=== PATIENT | male | born 1975 | race Caucasian/White ===

== ENCOUNTER 2020-06-03 09:22 | Observation (INO) | payer BC ==
[2020-06-03] MEDS ORDERED: NA CHLORIDE 0.9% 1,000 ML ONE (09:53)
[2020-06-03] MEDS ORDERED: NITROGLYCERIN 0.4 MG/TAB SL ONE (09:53)
[2020-06-03] MEDS ORDERED: ASPIRIN 81 MG CHEWABLE TABLET ONE (09:53)
[2020-06-03 10:11] LABS: Absolute Lymphocytes (CBC) 1.7 K/uL (0.7-4.9); Basophils % 1.3 % (0-1.3); Hematocrit 40.3 % (39.6-49.0); Lymphocytes % 28.7 % (15.3-44.8); Protime INR 1.15; RBC Red Blood Cell Count 4.48 M/uL (4.33-5.43)
[2020-06-03 10:28] LABS: ALT/SGPT 16 U/L (12-78); AST/SGOT 10 U/L (15-37); Alkaline Phosphatase 70 U/L (45-117); BUN Blood Urea Nitrogen 12 mg/dL (7-18); Bicarbonate 27 mmol/L (21-32); Bilirubin Direct 0.1 mg/dL (0-0.2); Bilirubin Total 0.4 mg/dL (0.2-1.0); Glucose Level 111 mg/dL (74-106); Magnesium 2.3 mg/dL (1.8-2.4); NT PRO-BNP 13 pg/mL (<125); Potassium 3.9 mmol/L (3.5-5.1); Protein, Total 7.5 g/dL (6.4-8.2); Sodium Level 138 mmol/L (136-145); Troponin (Emerg Dept Use Only) < 0.02 ng/mL (0.0-0.045)
--- NOTE | 2020-06-03 11:00 | EDPHYS ---
Physician Documentation [facility] Name: Corona Soni Age: 44 yrs Sex: Male : 1975 Arrival Date: 06/03/2020 Time: 09:24 Bed 17 Private MD: Asa Muller HPI: 06/03 09:45 This 44 yrs old Male presents to ER via Ambulatory with complaints of Chest cp Pain. 09:45 The patient or guardian reports chest pain that is located primarily in the anterior cp chest wall, left. 09:45 Onset: this morning, at 06:40. cp 09:45 The chest pain is described as sharp. Duration: The patient or guardian reports a cp single episode, that is still ongoing, but improving. Historical: - Allergies: 09:34 Bees; ss - Home Meds: 09:34 None [Active]; ss - PMHx: 09:34 None; ss - PSHx: 09:34 None; ss - Immunization history:: Adult Immunizations up to date. - Social history:: Smoking status: Patient reports the use of cigarette tobacco products, smokes one pack cigarettes per day. ROS: 09:46 Eyes: Negative for injury, pain, redness, and discharge. cp 09:46 Constitutional: Negative for body aches, chills, fever, poor PO intake. 09:46 ENT: Negative for ear pain, sore throat, difficulty swallowing, difficulty handling secretions. 09:46 Cardiovascular: Positive for chest pain, Negative for edema, palpitations. 09:46 Respiratory: Negative for cough, shortness of breath, wheezing. 09:46 Abdomen/GI: Negative for abdominal pain, nausea, vomiting, and diarrhea, constipation. 09:46 Neuro: Negative for altered mental status, headache, numbness, weakness. 09:46 All other systems are negative. Exam: 09:40 Constitutional: The patient appears in no acute distress, alert, awake, cp non-diaphoretic, well developed, well nourished. 09:40 Head/Face: Normocephalic, atraumatic. cp 09:40 Eyes: Periorbital structures: appear normal, Conjunctiva: normal, no exudate, no injection, Lids and lashes: appear normal, bilaterally. 09:40 ENT: External ear(s): are unremarkable, Nose: is normal, Posterior pharynx: Airway: no evidence of obstruction, patent. 09:40 Neck: ROM/movement: is normal, is supple, without pain, no range of motions limitations. 09:40 Chest/axilla: Inspection: normal, Palpation: is normal, no crepitus, no tenderness. 09:40 Cardiovascular: Rate: normal, Rhythm: regular, Pulses: Pulses are 2+ in right radial artery and left radial artery. Heart sounds: murmur, not appreciated, Edema: is not appreciated, JVD: is not appreciated. 09:40 Respiratory: the patient does not display signs of respiratory distress, Respirations: normal, no use of accessory muscles, no retractions, labored breathing, is not present, Breath sounds: are clear throughout, no decreased breath sounds. 09:40 Abdomen/GI: Inspection: abdomen appears normal, Palpation: abdomen is soft and non-tender, in all quadrants. 09:40 Back: pain, is absent, ROM is normal. 09:40 Neuro: Orientation: to person, place \T\ time. Mentation: is normal, Motor: moves all fours, strength is normal. 09:47 ECG was reviewed by the Attending Physician. Vital Signs: 09:32 BP 125 / 92; Pulse 73; Resp 16; Temp 98.9(TE); Pulse Ox 100% on R/A; Weight 54.43 kg; ss Height 5 ft. 8 in. (172.72 cm); Pain 4/10; 10:47 BP 111 / 79; Pulse 65; Resp 15; Pulse Ox 100% ; jl7 11:15 BP 131 / 88; Pulse 58; Resp 15; Pulse Ox 100% ; jl7 12:30 BP 116 / 88; Pulse 56; Resp 17; Pulse Ox 100% ; Pain 1/10; jl7 13:15 BP 117 / 87; Pulse 62; Resp 15; Pulse Ox 100% ; jl7 09:32 Body Mass Index 18.25 (54.43 kg, 172.72 cm) MDM: 09:32 Patient medically screened. ro 10:58 The patient was given aspirin in the Emergency Department. Data reviewed: vital signs, cp nurses notes, lab test result(s), EKG, and as a result, I will admit patient. 11:00 Physician consultation: Nitish Malagon DO was called at 10:55, was contacted at 10:55, cp regarding admission, to the telemetry unit. patient's condition, and will see patient in ED, shortly. 06/03 09:36 Order name: Basic Metabolic Panel; Complete Time: 10:33 06/03 10:33 Interpretation: Normal except: GLUC 111; GFR 83. 06/03 09:36 Order name: CBC with Diff; Complete Time: 10:33 06/03 10:33 Interpretation: EOSINOPHIL % 4.8. 06/03 09:36 Order name: LFT's; Complete Time: 10:33 06/03 10:33 Interpretation: Normal except: AST 10. 06/03 09:36 Order name: Magnesium; Complete Time: 10:33 06/03 09:36 Order name: NT PRO-BNP; Complete Time: 10:33 06/03 09:36 Order name: PT-INR; Complete Time: 10:33 06/03 09:36 Order name: Troponin (emerg Dept Use Only); Complete Time: 10:33 06/03 10:33 Interpretation: Abnormal: TROPED < 0.02. 06/03 09:36 Order name: XRAY Chest (1 view) 06/03 11:41 Order name: RAD EDMS 06/03 09:36 Order name: EKG; Complete Time: 09:37 06/03 09:36 Order name: Cardiac monitoring; Complete Time: 10:12 06/03 09:36 Order name: EKG - Nurse/Tech; Complete Time: 10:12 06/03 09:36 Order name: IV Saline Lock; Complete Time: 10:12 06/03 09:36 Order name: Labs collected and sent; Complete Time: 10:12 06/03 09:36 Order name: O2 Per Protocol; Complete Time: 10:12 06/03 09:36 Order name: O2 Sat Monitoring; Complete Time: 10:12 06/03 11:38 Order name: Diet Regular; Complete Time: 11:38 cp EC:47 Rate is 70 beats/min. Rhythm is regular. VT interval is normal. QRS interval is cp prolonged at 103 msec. QT interval is normal. Interpreted by me. Reviewed by me. Administered Medications: 09:50 Drug: NS 0.9% 1000 ml Route: IV; Rate: 1 bolus; Site: right forearm; jl7 10:48 Follow up: Response: No adverse reaction; IV Status: Completed infusion; IV Intake: jl7 1000ml 09:50 Drug: Aspirin Chewable Tablet 324 mg Route: PO; jl7 10:48 Follow up: Response: No adverse reaction jl7 09:50 Drug: Nitroglycerin 0.4 mg Route: Sublingual; jl7 10:15 Follow up: Response: No adverse reaction; Pain is decreased jl7 11:45 Drug: morphine 2 mg Route: IVP; Site: right forearm; jl7 12:10 Follow up: Response: No adverse reaction; Pain is decreased jl7 12:18 CANCELLED (wrong order): morphine 2 mg IM once; RASS on ADMIN: Combtv4, Very Agttd3, jl7 Agttd2, Rstlss1, AlertClm0, Drwsy-1, Lt Sdtn-2, Mod Sdtn-3, Dp Sdtn-4, UnArsble-5 Disposition: 16:04 Co-signature as Attending Physician, Asa Chau MD I agree with the assessment and ro plan of care. Disposition: 06/03/20 11:00 Hospitalization ordered by Nitish Malagon for Observation. Preliminary diagnosis is Chest pain, unspecified. - Bed requested for Telemetry/MedSurg (observation). - Status is Observation. jl7 - Condition is Stable. - Problem is new. - Symptoms have improved. Signatures: Dispatcher [employer] EDMariajose Weathers RN RN dw Anderson, Corey, MD MD cha Smirch, Shelby RN Asa Hobbs PA PA cp Leal, Jahala RN RN jl7 Corrections: (The following items were deleted from the chart) 12:06 11:00 Hospitalization Ordered by Nitish Malagon DO for Observation. Preliminary dw diagnosis is Chest pain, unspecified. Bed requested for Telemetry/MedSurg (observation). Status is Observation. Condition is Stable. Problem is new. Symptoms have improved. cp 12:18 10:57 morphine 2 mg IM once; RASS on ADMIN: Combtv4, Very Agttd3, Agttd2, Rstlss1, jl7 AlertClm0, Drwsy-1, Lt Sdtn-2, Mod Sdtn-3, Dp Sdtn-4, UnArsble-5 ordered. jl7 12:18 12:18 morphine 2 mg IM once; RASS on ADMIN: Combtv4, Very Agttd3, Agttd2, Rstlss1, jl7 AlertClm0, Drwsy-1, Lt Sdtn-2, Mod Sdtn-3, Dp Sdtn-4, UnArsble-5 ordered. jl7 13:30 12:06 06/03/2020 11:00 Hospitalization Ordered by Nitish Malagon DO for Observation. jl7 Preliminary diagnosis is Chest pain, unspecified. Bed requested for Telemetry/MedSurg (observation). Status is Observation. Condition is Stable. Problem is new. Symptoms have improved. dw 21:40 09:45 The patient or guardian reports chest pain that is located primarily in the cp anterior chest wall, left, cp 21:40 09:45 Onset: this morning, cp cp
--- NOTE | 2020-06-03 11:00 | ER ---
Nurse's Notes [facility] Name: Corona Soni Age: 44 yrs Sex: Male : 1975 Arrival Date: 06/03/2020 Time: 09:24 Bed 17 Private MD: Diagnosis: Chest pain, unspecified Presentation: 06/03 09:32 Chief complaint: Patient states: L sided chest pain that began at 0640 this morning, ss was sharp/ stabbing lasting only 15 minutes. Pt reports the pain is now dull. Pt reports that this pain has happened before, but did not last as long. Coronavirus screen: Client denies travel out of the [place] in the last 14 days. Ebola Screen: Patient denies exposure to infectious person. Patient denies travel to an Ebola-affected area in the 21 days before illness onset. Initial Sepsis Screen: Does the patient meet any 2 criteria? No. Patient's initial sepsis screen is negative. Does the patient have a suspected source of infection? No. Patient's initial sepsis screen is negative. Risk Assessment: Do you want to hurt yourself or someone else? Patient reports no desire to harm self or others. Onset of symptoms was June 03, 2020. 09:32 Method Of Arrival: Ambulatory ss 09:32 Acuity: ELIJAH 3 ss Triage Assessment: 09:35 General: Appears in no apparent distress. uncomfortable, Behavior is calm, cooperative, jl7 appropriate for age. Pain: Complains of pain in anterior aspect of left upper chest. Historical: - Allergies: 09:34 Bees; ss - Home Meds: 09:34 None [Active]; ss - PMHx: 09:34 None; ss - PSHx: 09:34 None; ss - Immunization history:: Adult Immunizations up to date. - Social history:: Smoking status: Patient reports the use of cigarette tobacco products, smokes one pack cigarettes per day. Screenin:35 Abuse screen: Denies threats or abuse. Denies injuries from another. Nutritional jl7 screening: No deficits noted. Tuberculosis screening: No symptoms or risk factors identified. Fall Risk IV access (20 points). Total [place] Fall Scale indicates No Risk (0-24 pts). Assessment: 09:35 General: Appears in no apparent distress. uncomfortable, Behavior is calm, cooperative, jl7 appropriate for age. Pain: Complains of pain in anterior aspect of left upper chest Pain does not radiate. Pain currently is 4 out of 10 on a pain scale. at worst was 10 out of 10 on a pain scale. Quality of pain is described as sharp, Pain began suddenly. Neuro: Level of Consciousness is awake, alert, obeys commands, Oriented to person, place, time, situation. Cardiovascular: Patient's skin is warm and dry. Rhythm is regular. Respiratory: Airway is patent Respiratory effort is even, unlabored, Respiratory pattern is regular, symmetrical. Derm: Skin is pink, warm \T\ dry. 10:30 Reassessment: Patient appears in no apparent distress at this time. Patient and/or jl7 family updated on plan of care and expected duration. Pain level reassessed. Patient is alert, oriented x 3, equal unlabored respirations, skin warm/dry/pink. Patient states feeling better. Patient states symptoms have improved. 11:30 Reassessment: Patient appears in no apparent distress at this time. No changes from jl7 previously documented assessment. Patient and/or family updated on plan of care and expected duration. Pain level reassessed. Patient is alert, oriented x 3, equal unlabored respirations, skin warm/dry/pink. 12:30 Reassessment: Patient appears in no apparent distress at this time. No changes from jl7 previously documented assessment. Patient and/or family updated on plan of care and expected duration. Pain level reassessed. Patient is alert, oriented x 3, equal unlabored respirations, skin warm/dry/pink. pain rated 1/10. Vital Signs: 09:32 BP 125 / 92; Pulse 73; Resp 16; Temp 98.9(TE); Pulse Ox 100% on R/A; Weight 54.43 kg; ss Height 5 ft. 8 in. (172.72 cm); Pain 4/10; 10:47 BP 111 / 79; Pulse 65; Resp 15; Pulse Ox 100% ; jl7 11:15 BP 131 / 88; Pulse 58; Resp 15; Pulse Ox 100% ; jl7 12:30 BP 116 / 88; Pulse 56; Resp 17; Pulse Ox 100% ; Pain 1/10; jl7 13:15 BP 117 / 87; Pulse 62; Resp 15; Pulse Ox 100% ; jl7 09:32 Body Mass Index 18.25 (54.43 kg, 172.72 cm) ED Course: 09:24 Patient arrived in ED. ag5 09:27 Meera Mars, LAWSON is Primary Nurse. jl7 09:30 Asa Monge PA is PHCP. cp 09:30 Asa Chau MD is Attending Physician. cp 09:34 Triage completed. ss 09:34 Arm band placed on right wrist. ss 09:35 Patient has correct armband on for positive identification. Placed in gown. Bed in low jl7 position. Call light in reach. Side rails up X 1. mechanical technologist on. Pulse ox on. NIBP on. Warm blanket given. 09:35 EKG completed in triage. Results shown to . jl7 09:35 Initial lab(s) drawn, by me, sent to lab. Inserted saline lock: 20 gauge in right jl7 forearm, using aseptic technique. Blood collected. 09:42 Patient maintains SpO2 saturation greater than 95% on room air. ss 10:59 Nitish Malagon DO is Hospitalizing Provider. cp 13:27 No provider procedures requiring assistance completed. Patient admitted, IV remains in jl7 place. intact, No redness/swelling at site. Administered Medications: 09:50 Drug: NS 0.9% 1000 ml Route: IV; Rate: 1 bolus; Site: right forearm; jl7 10:48 Follow up: Response: No adverse reaction; IV Status: Completed infusion; IV Intake: jl7 1000ml 09:50 Drug: Aspirin Chewable Tablet 324 mg Route: PO; jl7 10:48 Follow up: Response: No adverse reaction jl7 09:50 Drug: Nitroglycerin 0.4 mg Route: Sublingual; jl7 10:15 Follow up: Response: No adverse reaction; Pain is decreased jl7 11:45 Drug: morphine 2 mg Route: IVP; Site: right forearm; jl7 12:10 Follow up: Response: No adverse reaction; Pain is decreased jl7 12:18 CANCELLED (wrong order): morphine 2 mg IM once; RASS on ADMIN: Combtv4, Very Agttd3, jl7 Agttd2, Rstlss1, AlertClm0, Drwsy-1, Lt Sdtn-2, Mod Sdtn-3, Dp Sdtn-4, UnArsble-5 Intake: 10:48 IV: 1000ml; Total: 1000ml. jl7 Outcome: 11:00 Decision to Hospitalize by Provider. cp 13:27 Admitted to Tele accompanied by tech, via wheelchair, room 229, with chart, Report jl7 called to LAWSON Arndt 13:27 Condition: stable 13:27 Discharge instructions given to patient, Instructed on the need for admit, Demonstrated understanding of instructions. 13:30 Patient left the ED. jl7 Signatures: Leonor Sue RN RN Asa Monge, BECKY PA Meera Valdes, RN RN jl7 [employer] ag5
--- NOTE | 2020-06-03 11:35 | P.HP ---
Certification for Inpatient Patient admitted to: Observation With expected LOS: <2 Midnights Patient will require the following post-hospital care: None Practitioner: I am a practitioner with admitting privileges, knowledge of patient current condition, hospital course, and medical plan of care. Services: Services provided to patient in accordance with Admission requirements found in Title 42 Section 412.3 of the Code of Federal Regulations Patient History Date of Service: 06/03/20 Primary Care Provider: None Reason for admission: Chest pain History of Present Illness: 44-year-old male with history of tobacco abuse presented to emergency room with left-sided chest pain. Patient reports left sided chest pain that started today at work. He was walking at that time. He has point tenderness to the left lower chest region. He rated the pain about a 4. It lasted for about 15 min. He was associated with some shortness of breath. He has reported some chest pain often on over the past month. This lasted more than normal. He denied any fever, chills, nausea or significant headache. Patient came to the ER for further evaluation. In the ER vital signs stable. CBC unremarkable. BMP unremarkable. Cardiac enzymes unremarkable. No significant EKG changes noted. Patient was given aspirin and nitroglycerin with some slight improvement in chest pain. Patient also given normal saline. Patient admitted for further evaluation and observation. When I saw the patient ER, patient appeared stable. No family history of heart disease. He does smoke about 1 pack per day. Denies any drug use. Home medications list reviewed: Yes (None) - Past Medical/Surgical History Diabetic: No -: Tobacco abuse -: Herniated disc Past Surgical History: Reviewed- Non-Contributory Psychosocial/ Personal History: Patient lives at home. He works. - Family History Family History: Reviewed- Non-Contributory - Social History Smoking Status: Heavy Tobacco smoker (>10 cigarettes/day) Counseled patient to stop smoking for: less than 10 minutes Smoking therapy provided: Yes Patient receptive to therapy: Yes Alcohol use: No CD- Drugs: No Caffeine use: Yes Place of Residence: Home Review of Systems General: As per HPI Eyes: Unremarkable ENT: Unremarkable Respiratory: As per HPI Cardiovascular: As per HPI Gastrointestinal: Unremarkable Genitourinary: Unremarkable Musculoskeletal: Unremarkable Integumentary: Unremarkable Neurological: Unremarkable Lymphatics: Unremarkable Physical Examination - Physical Exam General: Alert, In no apparent distress, Oriented x3, Cooperative HEENT: Atraumatic, Normocephalic, Mucous membr. moist/pink Neck: Supple Respiratory: Clear to auscultation bilaterally, Normal air movement Cardiovascular: Normal pulses, Regular rate/rhythm Gastrointestinal: Normal bowel sounds, Soft and benign, Non-distended, No rebound, No guarding Musculoskeletal: No erythema, No tenderness, No warmth Integumentary: No tenderness/swelling, No erythema, No warmth, No cyanosis Neurological: Normal speech, Normal strength at 5/5 x4 extr, Normal tone, Normal affect - Studies Laboratory Data (last 24 hrs) 06/03/20 09:40: PT 13.5 H, INR 1.15 06/03/20 09:40: WBC 5.8, Hgb 14.1, Hct 40.3, Plt Count 184 06/03/20 09:40: Sodium 138, Potassium 3.9, BUN 12, Creatinine 0.97, Glucose 111 H, Magnesium 2.3, Total Bilirubin 0.4, AST 10 L, ALT 16, Alkaline Phosphatase 70 Assessment and Plan - Plan Impression: Left-sided chest pain, atypical Tobacco abuse Plan: Patient will be admitted for further evaluation and treatment. Will monitor telemetry and cardiac enzymes. Will obtain echocardiogram to further evaluate. Case discussed with cardiology. Cardiology to further evaluate patient. Will need to consider further evaluation inpatient versus outpatient. Will provide nicotine patch. Will continue aspirin and Lipitor. Will provide medication for pain. Tobacco cessation addressed in detail. Anticipate improvement over the next 24 hr with possible discharge once cardiac workup unremarkable. Await recommendations by Cardiology. Discharge Plan: Home Plan to discharge in: 24 Hours - Advance Directives Does patient have a Living Will: No Does patient have a Durable POA for Healthcare: No - Code Status/Comfort Care Code Status Assessed: Yes (Patient is full code) Time Spent Managing Pts Care (In Minutes): 55
[2020-06-03] MEDS ORDERED: MORPHINE 2 MG/ML SYR ONE (11:36)
--- NOTE | 2020-06-03 11:40 | RAD REPORT ---
EXAM DESCRIPTION: [place] Single View06/03/2020 11:32 am CLINICAL HISTORY: Chest pain COMPARISON: 2011 FINDINGS: The lungs appear clear of acute infiltrate. The heart is normal size IMPRESSION: No acute abnormalities displayed
[2020-06-03] MEDS ORDERED: HYDROCODONE/APAP 7.5/325 MG TAB PO PRN (13:32)
[2020-06-03] MEDS ORDERED: TRAMADOL 37.5mg/APAP 325mg PER TAB PO PRN (13:32)
[2020-06-03] MEDS ORDERED: ACETAMINOPHEN 500 MG TAB PO PRN (13:32)
[2020-06-03] MEDS ORDERED: ONDANSETRON 4 MG/2 ML VIAL IV PRN (13:32)
[2020-06-03 15:32] VITALS: BMI 18.2
[2020-06-03 17:08] LABS: CKMB Creatine Kinase MB < 1.0 ng/mL (0.3-3.6); Creatine Phosphokinase 94 U/L (39-308); Troponin I < 0.02 ng/mL (0.0-0.045)
[2020-06-03] MEDS ORDERED: ATORVASTATIN 40 MG TAB PO SCH (21:00)
[2020-06-04 01:38] LABS: CKMB Creatine Kinase MB < 1.0 ng/mL (0.3-3.6); Creatine Phosphokinase 85 U/L (39-308); Troponin I < 0.02 ng/mL (0.0-0.045)
--- NOTE | 2020-06-04 05:53 | EKG ---
Test Date: 2020-06-03 Test Time: 09:40:12 Conduit Helper: CASEY MEASUREMENT RESULTS: Intervals: Rate: 70 HI: 136 QRSD: 104 QT: 384 QTc: 414 [place]: P: 70 HI: 136 QRS: 79 T: 53 INTERPRETIVE STATEMENTS: Normal sinus rhythm with sinus arrhythmia Normal ECG No previous ECG available for comparison Electronically Signed On 06-04-20 05:50:20 CDT by Stephen Medrano
[2020-06-04 06:36] LABS: BUN Blood Urea Nitrogen 12 mg/dL (7-18); Bicarbonate 26 mmol/L (21-32); Glucose Level 94 mg/dL (74-106); HDL Cholesterol 35 mg/dL (40-60); LDL Cholesterol, Calculated 80 (<130); Magnesium 2.1 mg/dL (1.8-2.4); Potassium 4.1 mmol/L (3.5-5.1); Sodium Level 140 mmol/L (136-145); Thyroid Stimulating Hormone 0.714 uIU/mL (0.360-3.740)
--- NOTE | 2020-06-04 07:35 | P.DS ---
Admission Date: 06/03/20 Discharge Date: 06/04/20 Primary Care Provider: None Disposition: ROUTINE DISCHARGE Discharge Condition: GOOD Reason for Admission: Chest pain Consultations: Cardiology-Dr. Medrano Procedures: CXR: FINDINGS: The lungs appear clear of acute infiltrate. The heart is normal size IMPRESSION: No acute abnormalities displayed Medical Problem List: Left-sided chest pain, atypical likely costochondritis Tobacco abuse Brief History of Present Illness: 44-year-old male with history of tobacco abuse presented to emergency room with left-sided chest pain. Patient reports left sided chest pain that started today at work. He was walking at that time. He has point tenderness to the left lower chest region. He rated the pain about a 4. It lasted for about 15 min. He was associated with some shortness of breath. He has reported some chest pain often on over the past month. This lasted more than normal. He denied any fever, chills, nausea or significant headache. Patient came to the ER for further evaluation. In the ER vital signs stable. CBC unremarkable. BMP unremarkable. Cardiac enzymes unremarkable. No significant EKG changes noted. Patient was given aspirin and nitroglycerin with some slight improvement in chest pain. Patient also given normal saline. Patient admitted for further evaluation and observation. When I saw the patient ER, patient appeared stable. No family history of heart disease. He does smoke about 1 pack per day. Denies any drug use. Hospital Course: Patient presented with left-sided chest pain. It was mainly to the lower ribcage with point tenderness. This is likely costochondritis. Patient was admitted for further evaluation. Cardiac enzymes unremarkable. Chest x-ray unremarkable. Patient evaluated by Cardiology. Patient without significant risk factors except tobacco abuse. Cardiology recommends follow up as an outpatient for outpatient stress test. Will recommend ibuprofen over the counter as needed for pain. Will provide stretching exercises as well. Patient will be given limited supply of tramadol 50 mg 1 pill 3 times a day as needed for pain. No need for further intervention at this time. Follow up with cardiology within 1-2 weeks for stress test. Patient with tobacco abuse. Tobacco cessation addressed in detail. Education provided. Vital Signs/Physical Exam: Temp Pulse Resp BP Pulse Ox 98.1 F 58 17 117/72 97 06/04/20 04:00 06/04/20 04:00 06/04/20 04:00 06/04/20 04:00 06/04/20 04:00 General: Alert, In no apparent distress, Oriented x3, Cooperative HEENT: Atraumatic Neck: Supple Respiratory: Clear to auscultation bilaterally, Normal air movement, Other (point tender to the left lower rib cage region) Cardiovascular: Normal pulses, Regular rate/rhythm Gastrointestinal: Normal bowel sounds, Soft and benign, Non-distended, No tenderness, No masses, No rebound, No guarding Integumentary: No erythema, No warmth, No cyanosis Neurological: Normal speech, Normal strength at 5/5 x4 extr, Normal tone, Normal affect Laboratory Data at Discharge: WBC 5.8 K/uL (4.3-10.9) 06/03/20 09:40 Hgb 14.1 g/dL (13.6-17.9) 06/03/20 09:40 Hct 40.3 % (39.6-49.0) 06/03/20 09:40 Plt Count 184 K/uL (152-406) 06/03/20 09:40 PT 13.5 SECONDS (9.5-12.5) H 06/03/20 09:40 INR 1.15 06/03/20 09:40 Sodium 140 mmol/L (136-145) 06/04/20 05:52 Potassium 4.1 mmol/L (3.5-5.1) 06/04/20 05:52 BUN 12 mg/dL (7-18) 06/04/20 05:52 Creatinine 0.78 mg/dL (0.55-1.3) 06/04/20 05:52 Glucose 94 mg/dL (74-106) 06/04/20 05:52 Magnesium 2.1 mg/dL (1.8-2.4) 06/04/20 05:52 Total Bilirubin 0.4 mg/dL (0.2-1.0) 06/03/20 09:40 AST 10 U/L (15-37) L 06/03/20 09:40 ALT 16 U/L (12-78) 06/03/20 09:40 Alkaline Phosphatase 70 U/L (45-117) 06/03/20 09:40 Troponin I < 0.02 ng/mL (0.0-0.045) 06/04/20 01:09 Triglycerides 90 mg/dL (<150) 06/04/20 05:52 Cholesterol 133 mg/dL (<200) 06/04/20 05:52 HDL Cholesterol 35 mg/dL (40-60) L 06/04/20 05:52 Cholesterol/HDL Ratio 3.80 06/04/20 05:52 Home Medications: Tramadol HCl [Ultram] 50 mg PO TID PRN #5 tablet 06/04/20 New Medications: Tramadol HCl [Ultram] 50 mg PO TID PRN #5 tablet PRN Reason: Pain Scale 2-4 (Mild) Patient Discharge Instructions: 1. Follow up with a PCP to establish care. 2. Patient presented with left-sided chest pain. It was mainly to the lower ribcage with point tenderness. This is likely costochondritis. Patient was admitted for further evaluation. Cardiac enzymes unremarkable. Chest x-ray unremarkable. Patient evaluated by Cardiology. Patient without significant risk factors except tobacco abuse. Cardiology recommends follow up as an outpatient for outpatient stress test. Will recommend ibuprofen over the counter as needed for pain. Will provide stretching exercises as well. Patient will be given limited supply of tramadol 50 mg 1 pill 3 times a day as needed for pain. No need for further intervention at this time. Follow up with cardiology within 1-2 weeks for stress test. 3. Patient with tobacco abuse. Tobacco cessation addressed in detail. Education provided. Diet: AHA Activity: Ad alejandro Time spent managing pt's care (in minutes): 55
[2020-06-04 08:26] VITALS: BP 113/70; TEMP 97.8
[2020-06-04] MEDS ORDERED: NICOTINE 21 MG/PAT TD SCH (09:00)
[2020-06-04] MEDS ORDERED: ASPIRIN EC 81 MG TAB PO SCH (09:00)
[2020-06-04] MEDS ORDERED: ENOXAPARIN 40 MG/0.4 ML SQ SCH (09:00)
[2020-06-04 09:17] VITALS: O2SAT 98
--- NOTE | 2020-06-05 12:11 | CON ---
Date of Consultation: 06/04/[address] Malagon on 06/03/2020. I saw the patient on 06/04/2020. Reason For Consultation: Chest pain. History Of Present Illness: Mr. Soni is a 44-year-old male, who smokes, otherwise has no past ca rdiac history and no cardiac risk factors. Came in with sharp, stabbing pain over the left lateral c hest wall without any nausea, vomiting, diaphoresis, PND, orthopnea, pedal edema, palpitations, or sy ncope. By the time I saw him, he had ruled out for an CA. He had normal troponin, CPKs, MBs, chest x-ray, and EKG and he was feeling better. Past Medical History: Negative. Allergies: NONE. Review of Systems: Negative. Social History: Positive for tobacco. Family History: Positive for heart disease. Medications: None. Physical Examination: Vital Signs: Stable, afebrile. HEENT: Negative. Neck: Supple without any bruit, lymphadenopathy, JVD, or thyromegaly. Chest: Clear to auscultation and percussion. Cardiac: Revealed a regular rhythm and rate. No murmurs, gallops, or rubs. Abdomen: Benign. Extremities: Revealed no clubbing, cyanosis, or edema. Diagnostic Data: All normal. Impression And Plan: Chest pain, most likely pleuritic. Negative cardiac workup so far. Echocardio gram is normal. EKG is normal. He is pain free. I am comfortable with Mr. Soni going home. I will make arrangements for him to have an outpatient stress test. I think an outpatient MPI is being more reasonable for him. CYN/MANUEL Voice ID: [id number] Report ID: [id number]
== END 2020-06-04 09:20 | disposition home or self-care (01) ==
LOC: ER 09:22 → ERHOLD 11:26 → 2ND 13:07
PROVIDERS: ADMIT Family Medicine; ATTEND Family Medicine
DX: R07.89 Other chest pain (principal); F17.210 Nicotine dependence, cigarettes, uncomplicated; Z71.6 Tobacco abuse counseling; Z20.828 Contact with and (suspected) exposure to other viral communicable diseases; Z91.030 Bee allergy status; Z82.49 Family history of ischemic heart disease and other diseases of the circulatory system
CPT/HCPCS: 96361; 93005; 85025; 80048 ×2; 36415; 83735 ×2; 82550 ×2; 85610; 80061; 80076; 84443; 84484 ×3; 82553 ×2; 84439; 83880; 71045; 96374; 99285; U0002; J2270; J7030; G0378 ×3